=== PATIENT | female | born 1930 | race Caucasian/White ===

== ENCOUNTER 2019-02-04 15:18 | Emergency (ER) | payer MEDICARE ==
[2019-02-04 16:15] LABS: BILIRUBIN,URINE Negative (NEGATIVE); COLOR,URINE Yellow (YELLOW); GLUCOSE, URINE (UA) Negative (NEGATIVE); KETONES,URINE Negative (NEGATIVE); LEUKOCYTE ESTERASE ,URINE Large (NEGATIVE); NITRATE,URINE Negative (NEGATIVE); OCCULT BLOOD,URINE Moderate (NEGATIVE); PH,URINE 5.5 (5.0-8.0); PROTEIN,URINE POS 2+ mg/dL (NEGATIVE); UROBILINOGEN,URINE 0.2 mg/dL (0.2-1.0)
[2019-02-04 16:16] LABS: APPEARANCE,URINE CLOUDY (CLEAR)
[2019-02-04 16:23] LABS: BACTERIA,URINE Few /HPF (None Seen); SQUAMOUS EPITHELIAL CELL,UR None Seen /HPF (0-2); WBC,URINE >100 /HPF (0-1)
[2019-02-04] MEDS ORDERED: LIDOCAINE HCL-MPF 1% 2ML VIAL ONE (17:15)
[2019-02-04] MEDS ORDERED: CEFTRIAXONE SODIUM 1 GM ONE (17:15)
== END 2019-02-04 17:48 | disposition home or self-care (01) ==
LOC: EDH 15:18
DX: N39.0 Urinary tract infection, site not specified (principal); Z85.528 Personal history of other malignant neoplasm of kidney; Z85.118 Personal history of other malignant neoplasm of bronchus and lung; Z87.891 Personal history of nicotine dependence
CPT/HCPCS: 81001; 87088; 96372; 99284; J0696; J3490